=== PATIENT | female | born 1960 | race Caucasian/White ===

== ENCOUNTER 2016-09-19 05:16 | Observation (INO) | payer BC ==
[2016-09-10 11:18] VITALS: BMI 25.0
--- NOTE | 2016-09-10 11:50 | PAT Medication Instructions ---
Service Date Sep 10, 2016. Current Home Medication List Multivitamin (Multivitamin), 1 TAB PO QAM Medication Instructions For Your Scheduled Surgery - Hold the following medications the morning of surgery: Multivitamin (Multivitamin), 1 TAB PO QAM If you have any questions please call us at [phone] or [phone] ( [place]) or [phone]
[2016-09-10 12:15] LABS: BASO % 0.5 %; BASO ABS # 0.03 K/uL (0-0.2); COMPLETE YES; HEMATOCRIT 40.1 % (37-47); IG% 0.2 %; LYMPH % 28.9 %; LYMPH ABS # 1.82 K/uL (1.2-3.4); MEAN CELL VOLUME 84.6 fL (80-100); MEAN CORPUSCULAR HEMOGLOBIN 28.9 pg (25-34); MEAN CORPUSCULAR HGB CONC 34.2 g/dl (32-36); MEAN PLATELET VOLUME 9.2 fL (7.4-10.4); MONO % 3.8 %; NEUT % 63.6 %; PLATELET COUNT 290 K/uL (130-400); RED BLOOD COUNT 4.74 M/uL (4.2-5.4); WHITE BLOOD COUNT 6.29 K/uL (4.8-10.8)
[2016-09-10 12:30] LABS: PROTHROMBIN TIME (PATIENT) 10.3 SECONDS (9.0-12.0)
[2016-09-10 12:33] LABS: CALCIUM 9.4 mg/dl (8.5-10.1); CREATININE 0.8 mg/dl (0.60-1.20); POTASSIUM 3.6 mmol/L (3.5-5.1)
[~2016-09-19] VITALS: Ht 170.2 cm; Wt 25.4 kg
[2016-09-19] VITALS (8 sets, daily range): BP systolic 89–117; BP diastolic 53–72; PULSE 54–83; TEMP 36.3–37.8; O2SAT 94–98; Ht 170.2 cm; Wt 25.4 kg
[~2016-09-19 05:16] MED LIST: MULT-506 PO
[2016-09-19] MEDS ORDERED: CEFAZOLIN 2000 MG/60 ML D5W IV SCH (06:00)
[2016-09-19] MEDS ORDERED: LACTATED RINGER'S 1000ML 1,000 ML IV SCH (06:00)
[2016-09-19] MEDS ORDERED: LIDOCAINE 2% 20 MG/ML 5ML SYR ONE (06:49)
[2016-09-19] MEDS ORDERED: ROCURONIUM BROMIDE 10 MG/ML 5 ML VIAL ONE (06:49)
[2016-09-19] MEDS ORDERED: FENTANYL CITRATE INJ 50 MCG/1 ML 2 ML VIAL ONE ×3 (06:49→09:44)
[2016-09-19] MEDS ORDERED: PROPOFOL IV EMULSION 10 MG/ML 20 ML VIAL IV ONE (06:49)
[2016-09-19] MEDS ORDERED: MIDAZOLAM HCL 1 MG/ML 2ML VIAL ONE (06:49)
--- NOTE | 2016-09-19 07:08 | History & Physical Bridge Note ---
H&P Re-Evaluation Bridge Note: I have examined the patient, reviewed the History & Physical and in the interval since the performance of the History & Physical I have noted the following changes of clinical significance: No changes noted
[2016-09-19] MEDS ORDERED: LIDOCAINE/EPINEPHRINE 1% 20 ML VIAL ONE (07:19)
[2016-09-19] MEDS ORDERED: BUPIVACAINE 0.25% 30 ML VIAL ONE (07:20)
[2016-09-19] MEDS ORDERED: ATROPINE SULFATE 0.1 MG/ML 5ML SYR IV PRN (07:30)
[2016-09-19] MEDS ORDERED: EpHEDrine SULFATE INJ 50 MG/ML AMP IV PRN (07:30)
[2016-09-19] MEDS ORDERED: ONDANSETRON INJ 2 MG/ML 2 ML VIAL IV PRN ×2 (07:30→12:15)
[2016-09-19] MEDS ORDERED: HYDROmorphone INJ 1 MG/ML SYR IV PRN (07:30)
[2016-09-19] MEDS ORDERED: ONDANSETRON INJ 2 MG/ML 2 ML VIAL ONE (08:00)
[2016-09-19] MEDS ORDERED: DEXAMETHASONE SOD INJ 4 MG/ML VIAL ONE (08:00)
[2016-09-19] MEDS ORDERED: EpINEphrine INJ 1MG/ML AMP 1 MG/ML AMP ONE (10:43)
[2016-09-19] MEDS ORDERED: LIDOCAINE HCL 1% 20 ML VIAL ONE (10:43)
[2016-09-19] MEDS ORDERED: ACETAMINOPHEN 1000 MG/100 ML IV IV ONE (11:33)
--- NOTE | 2016-09-19 12:09 | [facility] Post Operative Brief Note ---
Immediate Operative Summary Operative Date Sep 19, 2016. Pre-Operative Diagnosis Bilateral Breast Hypertrophy Post-Operative Diagnosis Bilateral Breast Hypertrophy Procedure(s) Performed Bilateral Breast Reduction Surgeon Dr. Pamela Gómez Adoption Social Worker Surgeon(s) Bita Quiles PA-C Estimated Blood Loss 50ml Findings NACs pink and viable bilaterally Specimens C. Additional Left Breast Tissue Drains ROSA x2 Anesthesia General Complication(s) None Disposition Recovery Room / PACU
[2016-09-19] MEDS ORDERED: OXAZEPAM 10MG CAP PO PRN (12:15)
[2016-09-19] MEDS ORDERED: OXYCODONE/ACETAMINOPHEN 5-325 TAB PO PRN (12:15)
[2016-09-19] MEDS ORDERED: PROMETHAZINE HCL INJ 12.5 MG in SODIUM CHLORIDE 0.9% 50ML 50 ML IV PRN (12:15)
[2016-09-19] MEDS ORDERED: DiphenhydrAMINE HCL 50 MG/ML VIAL IV PRN (12:15)
[2016-09-19] MEDS ORDERED: MoRPHine SULFATE 2 MG/ML CARP IV PRN (12:15)
[2016-09-19] MEDS ORDERED: MoRPHine SULFATE 4 MG/ML 1 ML CARP\\VIAL IV PRN ×2 (12:15)
[2016-09-19] MEDS ORDERED: ACETAMINOPHEN 325 MG TAB PO PRN (12:15)
[2016-09-19] MEDS ORDERED: EpHEDrine SULFATE 50MG/5ML SYR ONE (12:18)
[2016-09-19] MEDS ORDERED: GLYCOPYRROLATE INJ 0.2 MG/ML VIAL ONE (12:18)
[2016-09-19] MEDS ORDERED: NEOSTIGMINE METHYLSULFATE 5 MG/5 ML SYR ONE (12:18)
[2016-09-19] MEDS: FENTANYL CITRATE INJ 50 MCG/1 ML 2 ML VIAL IV PRN ×4 (12:22→12:37)
--- NOTE | 2016-09-19 12:55 | Anesthesiology Progress Note ---
Anesthesia Post Op Note Date & Time Sep 19, 2016 at 12:56 Vital Signs Pain Intensity: 2 Vital Signs Past 12 Hours Date Time Temp Pulse Resp B/P Pulse Ox O2 Delivery O2 Flow Rate FiO2 09/19/16 12:45 79 16 99/60 97 Nasal Cannula 2 09/19/16 12:35 53 16 94/53 100 Mask 10 09/19/16 12:26 53 16 93/53 100 Mask 10 09/19/16 12:16 36.0 77 12 107/54 100 Mask 10 09/19/16 05:50 36.8 67 18 106/53 98 Room Air Notes Mental Status: alert / awake / arousable, participated in evaluation Pt Amnestic to Procedure: Yes Nausea / Vomiting: adequately controlled Pain: adequately controlled Airway Patency, RR, SpO2: stable & adequate BP & HR: stable & adequate Hydration State: stable & adequate Anesthetic Complications: no major complications apparent
[2016-09-19] MEDS ORDERED: D5W AND 1/2NSS + 20MEQ KCL 1,000 ML IV SCH (14:30)
--- NOTE | 2016-09-19 15:21 | Discharge Instructions ---
Discharge Instructions Date of Service Sep 19, 2016. Admission Reason for Admission: Breast Hypertrophy Discharge Discharge Diagnosis / Problem: macromastia Discharge Goals Goal(s): Decrease discomfort Activity Recommendations Activity Limitations: per Instructions/Follow-up section ACTIVITY RECOMMENDATIONS: __Normal activities _x_No bending, lifting or straining __No driving __Driving allowed when you are off pain medications __Walking permitted __You should have help at home for ___ days DRESSINGS: __No dressings required _x_Keep dressings dry/in place until first office visit __Remove dressings ___ and leave dressings off __Apply ice ___ days __Remove dressings and reapply garment __Apply antibiotic ointment (Bacitracin, Neosporin, etc) to wounds 3-4 times/ day for 10 days BATHING: _x_Keep dressings dry _x_Sponge bathing permitted __Showering permitted _x_No swimming, hot tubs or soaking in a tub MEDICATIONS: Resume previous medications unless instructed otherwise by your surgeon. _x_Do not use aspirin, Motrin, Advil or Ibuprofen as these may promote bleeding. Please use Tylenol. _x_Prescription(s) provided: pain medication provided at your last office visit OTHER INSTRUCTIONS: __Record drain output 2-3 times per day SPECIAL CARE INSTRUCTIONS: * It is normal to have a mild fever after surgery. If your temperature is higher than 101.5 degrees F, please call the office at [phone]. * Constipation is a typical side effect of pain medication. An over-the- counter stool softener will help relieve this. * Leaking around surgical drains may occur and should not cause concern. Sometimes these drains become clogged. If this happens, remove the bulb and milk the clot out of the tube, then replace the bulb. * Drainage from wounds after liposuction is normal and should be expected. Garments will become soiled. You should protect furniture and bedding. This drainage should mostly subside within 2-3 days. Leave garments in place unless instructed to remove them. * If you have unusual drainage from a wound or are concerned you have an infection or have any questions or concerns, please call the office at [phone]. FOLLOW UP VISIT: If not already scheduled, please call the office, , when you return home after surgery to schedule an appointment to be seen in __2_ days. . Current Hospital Diet Patient's current hospital diet: Regular Diet Discharge Diet Recommended Diet: Regular Diet Procedures Procedures Performed: Bilateral Breast Reduction Pending Studies Studies pending at discharge: yes List of pending studies: pathology Medical Emergencies . Who to Call and When: Medical Emergencies: If at any time you feel your situation is an emergency, please call 911 immediately. . Non-Emergent Contact Non-Emergency issues call your: Primary Care Provider, Surgeon . "Provider Documentation" section prepared by Bita Quiles. VTE Core Measure Inpt VTE Proph given/why not?: SCD's [place] Drug Monitoring Program Search Results: no issues identified
[2016-09-19] MEDS ORDERED: IV FLUIDS COMPLETED PRN (16:30)
[2016-09-19] MEDS: OXYCODONE/ACETAMINOPHEN 5-325 TAB PO PRN (16:34)
[2016-09-19] MEDS: CEFAZOLIN IV 2,000 MG in DEXTROSE 5% 50ML 50 ML IV SCH (16:35)
[2016-09-19] MEDS ORDERED: NURSING VERBAL MED ORDER ONE (20:15)
[2016-09-20] MEDS: CEFAZOLIN IV 2,000 MG in DEXTROSE 5% 50ML 50 ML IV SCH (00:23)
[2016-09-20 04:22] VITALS: BP 97/54; PULSE 54; TEMP 36.8; O2SAT 95
[2016-09-20 07:08] VITALS: BP 94/63; PULSE 67; TEMP 36.7; O2SAT 94
--- NOTE | 2016-09-20 08:10 | Surgery Progress Note ---
Surgery Progress Note Date of Service Sep 20, 2016. Subjective Post OP Day: 1 + feeling well, No complaints Objective Vital Signs: Date Time Temp Pulse Resp B/P Pulse Ox O2 Delivery O2 Flow Rate FiO2 09/20/16 07:08 36.7 67 16 94/63 94 Room Air 09/20/16 04:22 36.8 54 16 97/54 95 Room Air 09/20/16 00:25 Room Air 09/19/16 23:53 37.0 54 18 100/64 95 Room Air 09/19/16 19:12 36.6 63 17 92/53 94 Room Air 09/19/16 16:29 36.5 63 17 117/72 94 Room Air 09/19/16 15:58 36.3 75 17 89/54 95 Room Air 09/19/16 15:45 Room Air 09/19/16 14:45 83 16 95/61 94 09/19/16 14:00 37.8 65 18 90/62 98 Room Air 2.0 09/19/16 13:30 36.4 72 14 97/57 97 Nasal Cannula 2.0 09/19/16 13:30 Nasal Cannula 2.0 09/19/16 13:05 36.2 75 16 94/54 99 Nasal Cannula 2 09/19/16 12:55 36.2 77 16 94/54 99 Nasal Cannula 2 09/19/16 12:45 79 16 99/60 97 Nasal Cannula 2 09/19/16 12:35 53 16 94/53 100 Mask 10 09/19/16 12:26 53 16 93/53 100 Mask 10 09/19/16 12:16 36.0 77 12 107/54 100 Mask 10 Physical Exam: Joseph drainage (serous and sanginous ) General Appearance: WD/WN, no apparent distress Incision(s): clean, dry, intact, no erythema, findings (nipples with sensation bilaterally ) Laboratory Results: Results Past 24 Hours Test 09/20/16 06:16 Range/Units Assessment & Plan s/p bilateral breast reduction 1. doing well. drains removed d/c home
[2016-09-20] MEDS: OXYCODONE/ACETAMINOPHEN 5-325 TAB PO PRN (08:58)
[2016-09-20] MEDS ORDERED: MULTIVITAMIN TAB PO SCH (09:00)
[2016-09-20 09:23] VITALS: BP 94/63; PULSE 67; TEMP 36.7; O2SAT 94
--- NOTE | 2016-09-20 10:12 | Anesthesiology Progress Note ---
Anesthesia Post Op Note Date & Time Sep 20, 2016 at 10:12 Vital Signs Pain Intensity: 5.0 Vital Signs Past 12 Hours Date Time Temp Pulse Resp B/P Pulse Ox O2 Delivery O2 Flow Rate FiO2 09/20/16 09:23 36.7 67 16 94 Nasal Cannula 09/20/16 07:08 36.7 67 16 94/63 94 Room Air 09/20/16 04:22 36.8 54 16 97/54 95 Room Air 09/20/16 00:25 Room Air 09/19/16 23:53 37.0 54 18 100/64 95 Room Air Notes Mental Status: alert / awake / arousable, participated in evaluation Pt Amnestic to Procedure: Yes Nausea / Vomiting: adequately controlled Pain: adequately controlled Airway Patency, RR, SpO2: stable & adequate BP & HR: stable & adequate Hydration State: stable & adequate Anesthetic Complications: no major complications apparent
--- NOTE | 2016-09-20 10:52 | OPERATIVE REPORT ---
DATE OF OPERATION: 09/20/2016 PREOPERATIVE DIAGNOSIS: Bilateral symptomatic macromastia. POSTOPERATIVE DIAGNOSIS: Same. PROCEDURE: Bilateral breast reduction via inferior pedicle technique. SURGEON: Dr. Pamela Gómez. POCKET CREASER: Bita Quiles PA-C. ANESTHESIA: General. COMPLICATIONS: None. INDICATION FOR THE PROCEDURE: The patient is a 56-year-old female who presented to my office with a history of symptomatic macromastia for many years. OPERATION AND FINDINGS: BRIEF DESCRIPTION OF THE PROCEDURE: Risks, benefits, and alternatives of the procedure were explained to the patient who agreed and signed consent. She was identified and marked in the preoperative holding area. She was brought to the operating room where she was positioned supine and placed under general anesthesia without incident. Surgical site was prepped and draped sterilely. A time-out procedure was performed. Markings were reassessed and a 7 cm pedicle was marked. I began with the left side. 1% lidocaine with epinephrine was used to anesthetize the planned incisions. A 38 mm cookie cutter was used to circumscribe the nipple-areolar complex. The previously marked 7 cm pedicle was incised using a 15 blade scalpel and deepithelized. I began with the medial dissection of the pedicle using electrocautery. Cautery was used to incise through dermis and breast parenchyma down to the chest wall, taking care not to undermine the pedicle during dissection. A similar procedure was undertaken on the lateral aspect of the pedicle again taking care not to undercut the pedicle. Lastly, the pedicle was dissected out superiorly using electrocautery. This was carried down to the chest wall. I then began excision of the medial breast tissue followed by lateral aspect of the breast tissue. A 15 blade scalpel was used to make the inframammary fold incision and electrocautery was used to deepen the incision through dermis and breast parenchyma. Dissection was then carried superiorly to the length of the superior incision. The superior incision was then incised using 15 blade scalpel and again dissected using electrocautery. A similar procedure was undertaken laterally and around the keyhole portion of the incision. Care was taken to leave some fat on the lateral pectoral fascia in order to protect the T4 intercostal nerve. Hemostasis was achieved with electrocautery. Specimen was removed in its entirety and passed off for weighing. Left breast specimen weight was 466 grams. The wound was irrigated with normal saline. Hemostasis was achieved with electrocautery. 0.25% Marcaine plain was used to anesthetize the incisions as well as the pectoralis fascia. A 15 Kinyarwanda Joseph drain was brought out through a separate stab incision. The nipple-areolar complex was advanced into the keyhole using 2-0 Vicryl deep dermal suture. The T-junction was approximated using 2-0 Vicryl deep dermal suture. The wound was closed first in lateral to mid breast direction using 2-0 Vicryl deep dermal then medial to mid breast using 2-0 Vicryl deep dermal sutures. Vertical limb was approximated using 2-0 Vicryl deep dermals. Nipple areolar complex was also inset using 2-0 Vicryl deep dermals. Next, the superficial dermal layer was closed using 2-0 PDO running Quill suture along the inframammary fold and 3-0 PDS for the vertical limb and nipple-areolar complex incisions. At this point in time, reduction was performed on the right side. A similar procedure was undertaken. A total of 440 grams were 444 grams were removed. As I began to close the right breast in a similar fashion it was apparent the left breast was substantially larger than the left. I debated option of liposuction to further improve symmetry versus reopening a portion of the left breast. I decided to reopen the left breast and remove sutures around the nipple-areolar complex, vertical limb, and medial aspect of the inframammary fold incision. An additional 60 grams were removed from the left side for a total resection weight of 526 grams. Wounds were reapproximated as previously described. Lastly 3-0 Monocryl running subcuticular suture was placed on both sides around the nipple-areolar complex, vertical limb, inframammary fold. Inframammary fold as well as vertical limb were dressed using Prineo and Dermabond was placed around the nipple-areolar complex. At the end of the case, the nipple-areolar complexes were pink and viable. The left breast was still slightly larger but it was reasonably well approximated to the size of the right breast and I did not feel any further resection could be undertaken without jeopardizing the nipple areolar complex, pedicle, or breast skin. The patient was awakened and transferred to recovery room in satisfactory condition. Bita Quiles PA-C was present and scrubbed throughout the entire procedure and was instrumental in providing retraction during dissection of the pedicle as well as assisting in simultaneous wound closure. I attest to the content of the Intraoperative Record and any orders documented therein. Any exceptio ns are noted below.
--- NOTE | 2016-09-20 11:49 | Discharge Summary ---
Discharge Summary Date of Service Sep 20, 2016. Admission Date/Reason Sep 19, 2016 at 12:12 Breast Hypertrophy. Discharge Date/Disposition Sep 20, 2016 Home Diagnosis Principal Diagnosis: Breast Hypertrophy Procedure(s) Performed bilateral breast reduction Medication Reconciliation Continued Medications: Multivitamin (Multivitamin) Tab 1 TAB PO QAM, TAB Admission Physical Exam As per Admitting History & Physical. Hospital Course Patient presented to [facility] with history of symptomatic macromastia. She was taken to the OR and underwent bilateral breast reduction. Two pantera drains were placed intraoperatively. She tolerated the procedure well. On POD#1 she was tolerating a regular diet. On exam, her incisions were CDI and nipples had sensation bilaterally. There were 10cc of serosanguineous drainage bilaterally. The pantera drains were removed. The patient was discharged home with instructions to follow-up in the office tomorrow. Discharge Instructions Please refer to the electronic Patient Visit Report (Discharge Instructions) for additional information.
== END 2016-09-20 10:13 | disposition home or self-care (01) ==
LOC: ENRESERVTM → ENRESERVDT → C.ACU 05:16 → C.MSN 12:12 → UNDOADMOB 13:46 → C.MSN 13:46
PROVIDERS: ADMIT Plastic Surgery; ATTEND Plastic Surgery
DX: N62 Hypertrophy of breast (principal); Z83.6 Family history of other diseases of the respiratory system